=== PATIENT | male | born 1985 | race Caucasian/White ===

== ENCOUNTER 2018-06-06 13:30 | Observation (INO) | payer BC ==
[~2018-06-06] VITALS: Ht 185.4 cm; Wt 91.2 kg
[2018-06-06] MEDS ORDERED: LACTATED RINGERS 1,000 ML IV SCH (14:04)
[2018-06-06 14:15] VITALS: BP 121/76
[2018-06-06] MEDS ORDERED: ACET325T14 PO (14:15)
[2018-06-06] MEDS ORDERED: DOXY50TA13 PO (14:15)
[2018-06-06] MEDS ORDERED: IBUP-11 PO (14:15)
[2018-06-06] MEDS ORDERED: MIDAZOLAM 1 MG/ML, 2ML ONE (15:40)
[2018-06-06] MEDS ORDERED: FENTANYL PF 100 MCG/2ML ONE ×3 (15:40→18:12)
[2018-06-06] MEDS ORDERED: BUPIVACAINE/PF-EPI 0.5% 1:200K ONE (15:49)
[2018-06-06] MEDS ORDERED: DEXAMETHASONE 4 MG/ML, 1ML ONE (16:03)
[2018-06-06] MEDS ORDERED: CEFAZOLIN 1,000 MG ONE (16:03)
[2018-06-06] MEDS ORDERED: PROPOFOL 10 MG/ML, 50ML ONE (16:03)
[2018-06-06] MEDS ORDERED: MEPERIDINE/PF 25MG/ML,1ML ONE ×2 (18:00→18:21)
[2018-06-06] MEDS: MEPERIDINE/PF 25MG/0.5ML IVPush PRN ×2 (18:05→18:25)
[2018-06-06] MEDS ORDERED: ACETAMINOPHEN 650 MG/20.3 ML UDC ONE (18:12)
[2018-06-06] MEDS ORDERED: OXYcodone 5 MG/5 ML ORAL.SOL UDC ONE (18:12)
[2018-06-06] MEDS: FENTANYL PF 100 MCG/2ML IV PRN ×2 (18:30→18:43)
[2018-06-06] MEDS ORDERED: ACETAMINOPHEN 325 MG TABLET PO PRN (19:00)
[2018-06-06] MEDS ORDERED: LORazepam 2 MG/ML, 1ML IVPush PRN (19:00)
[2018-06-06] MEDS ORDERED: KETOROLAC 30 MG/1 ML IV PRN (19:00)
[2018-06-06] MEDS ORDERED: HYDROmorphone 2 MG/ML, 1ML IVPush PRN (19:00)
[2018-06-06] MEDS ORDERED: PROMETHAZINE 25 MG/ML, 1ML IV PRN (19:00)
[2018-06-06] MEDS ORDERED: OXYcodone 5 MG/5 ML ORAL.SOL UDC PO PRN (19:00)
== END 2018-06-06 21:36 | disposition home or self-care (01) ==
LOC: OUT 13:30 → 4NOR 19:45 → OUT 20:00 → 4NOR 20:03
PROVIDERS: ADMIT Orthopaedic Surgery; ATTEND Orthopaedic Surgery
DX: S93.325A Dislocation of tarsometatarsal joint of left foot, initial encounter (principal); X58.XXXA Exposure to other specified factors, initial encounter; Y93.23 Activity, snow (alpine) (downhill) skiing, snowboarding, sledding, tobogganing and snow tubing; Y92.89 Other specified places as the place of occurrence of the external cause; Y99.8 Other external cause status
CPT/HCPCS: 28465; 73630; 76000; C1713; G0378; J0690; J1100; J2175; J2250; J2704; J3010